=== PATIENT | female | born 1965 | race Caucasian/White ===

== ENCOUNTER → 2019-04-18 14:05 | Outpatient (CLI) | payer OTHER, SELFPAY ==
--- NOTE | 2019-04-18 | DI.MG.S_ITS ---
UNILATERAL RIGHT DIGITAL DIAGNOSTIC MAMMOGRAM 3D/2D SHORT-TERM FOLLOW-UP POST LUMPECTOMY: 04/18/2019 CLINICAL: Patient returns for a 6 month follow up of the right breast. DCIS. Comparison is made to exams dated: 12/14/2018 mammogram, 12/14/2018 ultrasound - [facility], 06/09/2018 mammogram, 06/08/2018 mammogram, and 06/08/2018 ultrasound - [facility]. The tissue of right breast is extremely dense, which lowers the sensitivity of mammography. There are a grouped fine calcifications in the right breast at 7 o'clock posterior depth. These are not significantly changed. No other significant masses or calcifications are seen in the breast. IMPRESSION: PROBABLY BENIGN The grouped fine calcifications in the right breast are probably benign. A follow-up mammogram in 6 months is recommended. A follow-up mammogram in 6 months is recommended to demonstrate stability. This exam was interpreted at Station ID: [id number]. NOTE: For mammograms, a report in lay terms will be sent to the patient. Approximately 15% of breast malignancies will not be visualized mammographically. In the management of a palpable breast mass, a negative mammogram must not discourage biopsy of a clinically suspicious lesion. Electronically Signed By: Luis pan/[email or web address]:04/19/2019 15:28:52 letter sent: Followup Recommended ACR BI-RADS Category 3: Probably benign [id number]
== END ==
DX: R92.1 Mammographic calcification found on diagnostic imaging of breast (principal)
CPT/HCPCS: 77065; G0279